=== PATIENT | male | born 1990 | race Caucasian/White ===

== ENCOUNTER 2017-05-05 09:47 | Emergency (ER) | payer OTHER ==
[~2017-05-05] VITALS: Ht 172.7 cm; Wt 70.8 kg
[2017-05-05 09:54] VITALS: BP 128/90
--- NOTE | 2017-05-05 10:10 | NUR ---
PATIENT PRESENTS TO ED FOR URINARY BURNING X2DAYS WITH PUS AND ABD PAIN X1WK. DENIES FEVER.DENIES N/V/D; SKIN IS PINK/WARM/DRY; AAOX4 WITH EVEN AND STEADY GAIT; LUNGS CLEAR BL; HR EVEN AND REGULAR; PT DENIES ANY FEVER, CP, SOB, OR COUGH AT THIS TIME; PATIENT STATES PAIN OF 9/10 AT THIS TIME;PATIENT POSITIONED FOR COMFORT; HOB ELEVATED; BEDRAILS UP X2; BED DOWN. ER MD MADE AWARE OF PT STATUS.
[2017-05-05 10:43] LABS: APPEARANCE,URINE HAZY (CLEAR); BILIRUBIN,URINE NEGATIVE (NEGATIVE); BLOOD, URINE 2+ (NEGATIVE); COLOR,URINE YELLOW (YELLOW); LEUKOCYTE ESTERASE ,URINE 3+ (NEGATIVE); NITRITE, URINE NEGATIVE (NEGATIVE); UGLUCOSE NEGATIVE (NEGATIVE)
--- NOTE | 2017-05-05 10:52 | NUR ---
PT RESTING ON BED;NO ACUTE DISTRESS NOTED;WILL CONTINUE TO MONITOR PT.
[2017-05-05 10:57] LABS: RBC,URINE 3-10 (FEW) /HPF (0-5); WBC,URINE 16-25 (MOD) /HPF (0-5)
[2017-05-05 11:14] VITALS: BP 124/82
--- NOTE | 2017-05-08 10:40 | NUR ---
addendum:called patient [phone]. non working number.re: urine culture results
--- NOTE | 2017-05-08 10:46 | NUR ---
addendum: called next of kin,manuelito [phone]. left message to tell pinky,her brother to call [facility] er. phone number provided
--- NOTE | 2017-05-08 11:00 | NUR ---
addendum: given copy results of urine culture to axel from infection control.made aware unable to contact patient. axel stated she will report to [facility] today.emiliano made aware
--- NOTE | 2017-05-08 17:34 | NUR ---
ADDENDUM: PATIENT CALLED BACK.PATIENT AGREED TO RETURN TO ER TODAY FOR FARTHER TREATMENT.JOHN MADE AWARE.
== END 2017-05-05 11:13 | disposition home or self-care (01) ==
LOC: MED 09:47
DX: N39.0 Urinary tract infection, site not specified (principal); R30.0 Dysuria
CPT/HCPCS: 81001; 87086; 99284

== ENCOUNTER 2017-05-08 18:34 | Emergency (ER) | payer OTHER ==
[~2017-05-08] VITALS: Ht 180.3 cm; Wt 71.4 kg
[2017-05-08 19:16] VITALS: BP 112/65
--- NOTE | 2017-05-08 19:25 | NUR ---
AMBULATED TO ER BED 10
--- NOTE | 2017-05-08 19:30 | NUR ---
27Y/M PT. PRESENTS TO ED FOR URINE RESULT POSSITIVE FOR GONORRHEA. AAO X4, AMBULATORY WITH STEADY GAIT. NO S/SX OF DISTRESS AT THIS TIME. ER PA MADE AWARE OF PT. STATUS.
--- NOTE | 2017-05-08 19:40 | NUR ---
Patient being evaluated by MOON TALBERT at bedside.
[2017-05-08] MEDS ORDERED: AZITHROMYCIN 250 MG TAB PO ONE (19:45)
[2017-05-08] MEDS ORDERED: cefTRIAXone 250 MG in LIDOCAINE 1% ***ER ONLY *** 0.9 ML IM ONE (19:45)
[2017-05-08 20:28] VITALS: BP 112/65
--- NOTE | 2017-05-08 20:28 | NUR ---
Patient discharged with v/s stable. Written and verbal after care instructions given and explained. Patient verbalized understanding. Ambulatory with steady gait. All questions addressed prior to discharge. Advised to follow up with PMD.
[2017-05-12 12:24] LABS: CHLAMYDIA TRACHOMATIS AMP DNA Negative (Negative)
== END 2017-05-08 20:28 | disposition home or self-care (01) ==
LOC: MED 18:34
DX: A54.9 Gonococcal infection, unspecified (principal)
CPT/HCPCS: 36415; 87491; 96372; 99284; J0696; J2001; 99283